=== PATIENT | female | born 1980 | race Caucasian/White ===

== ENCOUNTER 2022-05-05 15:36 | Emergency (ER) | payer OTHER, SELFPAY ==
[2022-05-05 15:44] VITALS: BP 107/49; PULSE 64; RESP 18; TEMP 36.7; O2SAT 100
[2022-05-05 16:04] VITALS: BP 107/49; PULSE 64; RESP 18; TEMP 36.7; O2SAT 100
--- NOTE | 2022-05-05 16:29 | ED.URI ---
HPI - URI/Sore Throat General Chief Complaint: Upper Respiratory Infection Stated Complaint: fever / mild sore throat Time Seen by Provider: 05/05/22 16:22 History of Present Illness HPI Narrative: 42-year-old female presented for complaints of mild sore throat, onset this morning. Also reports a fever up to 101.5 4 days ago. She states her son was sick last week with fever and cough. Denies Shortness of breath, wheezing, nausea, vomiting, diarrhea. She endorses strep throat exposure. Related Data Home Medications Medication Instructions Recorded Confirmed No Home Medications 05/05/22 05/05/22 Allergies Allergy/AdvReac Type Severity Reaction Status Date / Time No Known Allergies Allergy Unverified 05/05/22 15:44 Review of Systems Review of Systems: CONSTITUTIONAL: Denies body aches, fever, chills, or sweats. EYES: Denies visual changes, redness, or discharge. ENT: Denies rhinorrhea, congestion, or otalgia. CARDIOVASCULAR: Denies chest pain, palpitations, or edema. RESPIRATORY: Denies dyspnea. GASTROINTESTINAL: Denies abdominal pain, nausea, vomiting, or diarrhea. SKIN: Denies rash, itching, or wounds. MUSCULOSKELETAL: Denies back pain, joint pain, or myalgia. NEUROLOGIC: Denies headache Exam Narrative: GENERAL: well-appearing, no acute distress. EYES: conjunctivae clear ENT: Mucous membranes moist. TM pearly wheeler with normal light reflex bilaterally; no tragal tenderness. Oropharynx mildly erythematous without lesions. Tonsils not enlarged and without exudate. No drooling, no hoarseness, no trismus, uvula midline. No tripod positioning, hot potato voice, or soft palate swelling. NECK: Supple. No lymphadenopathy CHEST: Clear to auscultation, breath sounds equal. HEART: Regular rate and rhythm. No murmur heard. SKIN: Warm, dry, no rash. NEURO: Alert and oriented x3. Course Course Emergency Course: Patient is aware of diagnosis, understands and agrees to treatment plan. Anticipatory guidance given. Patient agrees to follow-up as directed and is aware of reasons to seek care at the emergency department. Portions of this record may have been created with voice recognition software Level of Care: Express Care Visit Vital Signs Vital signs: Vital Signs Temperature 98.1 F 05/05/22 15:44 Pulse Rate 64 05/05/22 15:44 Respiratory Rate 18 05/05/22 15:44 Blood Pressure 107/49 L 05/05/22 15:44 Pulse Oximetry 100 05/05/22 15:44 Oxygen Delivery Room Air 05/05/22 15:44 Temperature 98.1 F 05/05/22 16:04 Pulse Rate 64 05/05/22 16:04 Respiratory Rate 18 05/05/22 16:04 Blood Pressure 107/49 L 05/05/22 16:04 Pulse Oximetry 100 05/05/22 16:04 Oxygen Delivery Room Air 05/05/22 16:04 MDM - URI/Sore Throat MDM Narrative Medical decision making narrative: strep result reviewed with pt. Advise supportive treatments. Patient is appropriate for outpatient treatment and follow-up. Differential Diagnosis Differential diagnosis: Likely upper respiratory infection, viral infection and pharyngitis Lab Data Labs: Strep Screen Presumptive Negative *(Reference Range: Negative)* Strep Screen Presumptive Negative *(Reference Range: Negative)* Discharge Plan Discharge Clinical Impression: Pharyngitis Patient Disposition: Home, Self-Care Condition: Stable Instructions: Pharyngitis (ED) Additional Instructions: Rapid strep swab was negative today You will be notified in a few days if the culture comes back positive for strep, and appropriate antibiotics will be called in at that time. if symptoms are due to a viral illness, it is not treated with antibiotics. Viral symptoms can be present for up to 10-14 days. Recommend Flonase spray and Zyrtec for sinus congestion/drainage Cough syrup may cause drowsiness; avoid driving or take it at night t
== END 2022-05-05 16:30 | disposition home or self-care (01) ==
PROVIDERS: Emergency Provider Nurse Practitioner Family; PCP Emergency Medicine
DX: J02.9 Acute pharyngitis, unspecified (principal)
CPT/HCPCS: 87081; 87880; 99203; G0463